=== PATIENT | male | born 1980 | race African-American/Black ===

== ENCOUNTER 2016-09-25 11:57 | Emergency (ER) | payer BC ==
--- NOTE | 2016-09-25 12:07 | EDM.PDOC ---
ED HPI GENERAL MEDICAL PROBLEM - General Chief Complaint: Chest Pain Stated Complaint: CHEST PAIN Time Seen by Provider: 09/25/16 12:06 Source of Information: Reports: Patient History Limitations: Reports: No Limitations - History of Present Illness INITIAL COMMENTS - FREE TEXT/NARRATIVE: Patient is a 35-year-old male who presents to the E.D complaining of chest pain , epigastric pain, and intermittent dizziness. Patient states he's noticed for the past 2 weeks some epigastric discomfort that would come and go with no known precipitating factors. States the pain would radiate to his chest. States his discomfort has become more frequent and more intense. States he was dizzy a few times yesterday with no syncopal episodes. Describes the pain as a sharp discomfort with waxing and waning noted. There are no known precipitating factors. States yesterday after eating and drinking a few beers the symptoms did worsen last night after laying down. He has been utilizing ibuprofen off and on for discomfort with little relief. He has a history of acid reflux but has never had a EGD/colonoscopy performed. Denies any nausea or vomiting, diarrhea, blood in stool, dysuria, fever/chills, or additional complaints. Onset: Other (2 wks ago) Duration: Intermittent, Waxing/Waning Location: Reports: Chest, Abdomen Quality: Reports: Ache, Sharp, Other (burning) Severity: Moderate Improves with: Reports: None Worsens with: Reports: Other (laying flat) Associated Symptoms: Reports: Chest Pain. Denies: No Other Symptoms Treatments [employer]: Reports: NSAIDS Chest Pain Score (Numeric/FACES): 5 - Related Data Allergies Allergy/AdvReac Type Severity Reaction Status Date / Time No Known Allergies Allergy Verified 09/25/16 12:04 Home Meds: Home Meds . [No Known Home Meds] 03/19/15 [History] Past Medical History - Past Health History Medical/Surgical History: Denies Medical/Surgical History - Infectious Disease History Infectious Disease History: Reports: Chicken Pox Social & Family History - Tobacco Use Smoking Status *Q: Former Smoker (quit 2009) Second Hand Smoke Exposure: No - Alcohol Use Days Per Week of Alcohol Use: 3 Number of Drinks Per Day: 5 Total Drinks Per Week: 15 - Recreational Drug Use Recreational Drug Use: No ED ROS GENERAL - Review of Systems Review Of Systems: See Below Constitutional: Denies: Fever, Chills, Malaise, Weakness, Fatigue, Night Sweats , Decreased Appetite HEENT: Reports: No Symptoms Respiratory: Denies: Shortness of Breath, Wheezing, Pleuritic Chest Pain, Cough , Sputum, Hemoptysis Cardiovascular: Reports: Chest Pain. Denies: Dyspnea on Exertion, Edema, Lightheadedness, Palpitations, Syncope GI/Abdominal: Reports: Abdominal Pain. Denies: Anorexia, Black Stool, Bloody Stool, Constipation, Diarrhea, Decreased Appetite, Difficulty Swallowing, Hematemesis, Melena, Nausea, Vomiting : Reports: No Symptoms Musculoskeletal: Denies: Back Pain Neurological: Reports: Dizziness. Denies: Headache, Numbness, Syncope, Tingling , Weakness ED EXAM, GENERAL - Physical Exam Exam: See Below Exam Limited By: No Limitations General Appearance: Alert, WD/WN, No Apparent Distress Ears: Hearing Grossly Normal Nose: Normal Inspection Throat/Mouth: Normal Inspection, Normal Oropharynx, Normal Voice, No Airway Compromise Neck: Normal Inspection, Supple, Non-Tender Respiratory/Chest: No Respiratory Distress, Lungs Clear, Normal Breath Sounds, No Accessory Muscle Use, Chest Non-Tender Cardiovascular: Normal Peripheral Pulses, Regular Rate, Rhythm, No Murmur Peripheral Pulses: 2+: Radial (R) GI/Abdominal: Normal Bowel Sounds, Soft, No Organomegaly, No Distention, Tender (epigastric region) Extremities: Normal Inspection, Non-Tender, No Pedal Edema, Normal Capillary Refill Neurological: Alert, Oriented, CN II-XII Intact, Normal Cognition, No Motor/ Sensory Deficits Psychiatric: Normal Affect, Normal Mood Skin Exam: Warm, Dry, Intact, Normal Color Course - Vital Signs Last Recorded V/S: Last Vital Signs Temp 98.0 F 09/25/16 12:04 Pulse 66 09/25/16 14:13 Resp 20 09/25/16 14:13 BP 140/90 09/25/16 14:13 Pulse Ox 99 09/25/16 14:13 - Orders/Labs/Meds Orders: Active Orders 24 hr Category Date Time Status EKG Documentation Completion [RC] STAT Care 09/25/16 12:17 Active Peripheral IV Care [RC] . DIRECTED Care 09/25/16 12:17 Active Peripheral IV Insertion Adult [OM.PC] Stat Oth 09/25/16 12:17 Ordered Labs: Laboratory Tests 09/25/16 09/25/16 Range/Units 12:35 12:35 WBC 6.11 (4.23-9.07) K/mm3 RBC 5.54 (4.63-6.08) M/mm3 Hgb 16.5 (13.7-17.5) gm/L Hct 48.6 (40.1-51.0) % MCV 87.7 (79.0-92.2) fl MCH 29.8 (25.7-32.2) pg MCHC 34.0 (32.2-35.5) g/dl RDW Std Deviation 38.8 (35.1-43.9) fL Plt Count 196 (163-337) K/mm3 MPV 10.8 (9.4-12.3) fl Neut % (Auto) 48.5 (34.0-67.9) % Lymph % (Auto) 33.9 (21.8-53.1) % [place] % (Auto) 14.1 H (5.3-12.2) % Eos % (Auto) 2.0 (0.8-7.0) Baso % (Auto) 0.8 (0.1-1.2) % Neut # (Auto) 2.97 (1.78-5.38) K/mm3 Lymph # (Auto) 2.07 (1.32-3.57) K/mm3 [place] # (Auto) 0.86 H (0.30-0.82) K/mm3 Eos # (Auto) 0.12 (0.04-0.54) K/mm3 Baso # (Auto) 0.05 (0.01-0.08) K/mm3 Sodium 138 (136-145) mEq/L Potassium 3.9 (3.5-5.1) mEq/L Chloride 102 (98-107) mEq/L Carbon Dioxide 25 (21-32) mEq/L Anion Gap 14.9 (5-15) BUN 9 (7-18) mg/dL Creatinine 1.0 (0.7-1.3) mg/dL Est Cr Clr Drug Dosing 104.09 mL/min Estimated GFR (MDRD) > 60 (>60) mL/min BUN/Creatinine Ratio 9.0 L (14-18) Glucose 114 H (74-106) mg/dL Calcium 9.1 (8.5-10.1) mg/dL Total Bilirubin 0.8 (0.2-1.0) mg/dL AST 60 H (15-37) U/L ALT 99 H (16-63) U/L Alkaline Phosphatase 110 (46-116) U/L Troponin I < 0.017 (0.00-0.056) ng/mL C-Reactive Protein 0.7 (<1.0) mg/dL Total Protein 7.9 (6.4-8.2) g/dl Albumin 3.6 (3.4-5.0) g/dl Globulin 4.3 gm/dL Albumin/Globulin Ratio 0.8 L (1-2) Lipase 156 (73-393) U/L Meds: Medications Discontinued Medications Generic Name Dose Route Start Last Admin Trade Name Freq PRN Reason Stop Dose Admin Al Hydroxide/Mg Hydroxide 30 0 ml 09/25/16 12:18 09/25/16 12:59 ml/ Lidocaine HCl 15 ml PO 09/25/16 12:19 45 ml ONETIME ONE Administration Pantoprazole Sodium 40 mg 09/25/16 12:18 09/25/16 12:58 Protonix Iv IVPUSH 09/25/16 12:19 40 mg ONETIME ONE Administration Sodium Chloride 10 ml 09/25/16 12:17 09/25/16 13:02 Saline Flush FLUSH 10 ml ASDIRECTED PRN Administration Keep Vein Open - Re-Assessments/Exams Free Text/Narrative Re-Assessment/Exam: 09/25/16 12:24 Peripheral IV started. Ordered GI cocktail and protonix 40 mg IVP. Initial labs and studies include: CBC, C14, CRP, Lipase, CXR, EKG, and troponin. EKG sinus rhythm at a rate of 74 with left anterior fascicular block. ST elevation, probable normal earlier repolarization pattern. ND interval is 149, QTC 398. CXR reviewed: No acute abnormalities noted. Final interpretation pending. Dr. Martinez reviewed study. Reassessment: Patients discomfort has completely resolved after GI cocktail. Labs reviewed: sodium 138, potassium 3.9, creatinine 1.0, AST 60, ALT 99, troponin within normal limits, lipase within normal limits, CBC was essentially normal. 09/25/16 13:43 Shared results of labs and studies with patient. he is asymptomatic. We'll discharge patient home with instructions as documented. Departure - Departure Time of Disposition: 13:44 Disposition: Home, Self-Care 01 Condition: good Clinical Impression: Gastritis Qualifiers: Gastritis type: unspecified gastritis Chronicity: acute Gastritis bleeding: without bleeding Qualified Code(s): K29.00 - Acute gastritis without bleeding GERD (gastroesophageal reflux disease) Qualifiers: Esophagitis presence: esophagitis presence not specified Qualified Code(s): K21.9 - Gastro-esophageal reflux disease without esophagitis Instructions: Gastritis, Adult, [id number], Gastroesophageal Reflux Disease, Adult Referrals: PCP,None [Primary Care Provider] - Seb Quezada [Physician] - Forms: ED Department Discharge Additional Instructions: Take prilosec 20mg 1/2 to 1 hour prior to eating or drinking in the a.m. For intermittent exacerbation of acid reflux can utilize maalox following the manufactures dosing instructions. Will have you take zantac 150mg every evening for the next two weeks or until symptoms resolve. Refrain from eating or drinking alcohol within 4 hours of going to bed. Refrain from excessive caffeine use, chocolate, spicy foods, or other foods/drinks that may worsen discomfort. Followup with PCP at [facility] in two weeks if symptoms have not improved or resolved for reevaluation and treatment. Return to the E.D. for any new or worsening symptoms as discussed. STOP UTILIZING ANY NSAIDS. - My Orders Last 24 Hours: My Active Orders 09/25/16 12:17 EKG Documentation Completion [RC] STAT Peripheral IV Care [RC] . DIRECTED Peripheral IV Insertion Adult [OM.PC] Stat - Assessment/Plan Last 24 Hours: My Active Orders 09/25/16 12:17 EKG Documentation Completion [RC] STAT Peripheral IV Care [RC] . DIRECTED Peripheral IV Insertion Adult [OM.PC] Stat
[2016-09-25] MEDS ORDERED: Sodium Chloride 0.9% 10 ML Syringe FLUSH PRN (12:17)
[2016-09-25] MEDS ORDERED: Alum Hydrox/Mag Hydrox/Simeth 30 ML, Lidocaine 2% 15 ML PO ONE ×2 (12:18)
[2016-09-25] MEDS ORDERED: Pantoprazole 40 MG Vial IVPUSH ONE (12:18)
--- NOTE | 2016-09-25 13:54 | CR ---
Chest: Portable view of the chest was obtained. Comparison: No previous study. Heart size and mediastinum are within normal limits for portable technique. Lungs are clear. Bony structures are grossly intact. Impression: 1. Nothing acute is identified on portable chest x-ray. Diagnostic code #1
[2016-09-25 14:17] VITALS: BP 140/90
== END 2016-09-25 14:15 | disposition home or self-care (01) ==
LOC: JD.ED 11:57
DX: K29.00 Acute gastritis without bleeding (principal); K21.9 Gastro-esophageal reflux disease without esophagitis; Z87.891 Personal history of nicotine dependence
CPT/HCPCS: 36415; 71010; 80053; 83690; 84484; 85025; 86140; 93005; 96374; 99285; A9270; C9113; J7050; 99284